=== PATIENT | male | born 1950 | race Caucasian/White ===

== ENCOUNTER → 2021-04-02 17:49 | Outpatient (CLI) | payer MEDICARE, OTHER, SELFPAY ==
[2021-04-02 19:03] LABS: Alanine Aminotransferase 24 U/L (12-78); Albumin Level 4.1 g/dl (3.5-5.0); Albumin/Globulin Ratio 1.6 (1.1-1.8); Alkaline Phosphatase 110 U/L (38-126); Anion Gap 12.9 mEq/L (5-15); Aspartate Amino Transferase 33 U/L (17-59); Bilirubin,Total 0.4 mg/dl (0.2-1.3); Blood Urea Nitrogen 12 mg/dl (9-20); Calcium 9.1 mg/dl (8.4-10.2); Carbon Dioxide 28 mmol/L (22.0-30.0); Chloride 104 mmol/L (98-107); Chol/HDL Ratio 2.6 (1-3.5); Cholesterol 136 mg/dl (140-200); Estimated Glomerular Filt Rate 96 ml/min (>60); GFR (African American) 116 ML/MIN (>60); Globulin 2.5 g/dL (1.3-3.2); Glucose 297 mg/dl (74-100); HDL Cholesterol 53 mg/dl (40-60); Potassium 4.9 mmoL/L (3.5-5.1); Sodium 140 mmol/L (136-145); Total Protein,Serum 6.6 g/dl (6.3-8.2); Triglycerides 126 mg/dl (30-150); VLDL Cholesterol 25 mg/dL (0-40)
== END ==
PROVIDERS: Visit Provider Internal Medicine Adolescent Medicine
DX: E78.5 Hyperlipidemia, unspecified (principal)
CPT/HCPCS: 80053; 80061

== ENCOUNTER → 2022-07-15 20:46 | Outpatient (CLI) | payer MEDICARE, OTHER, SELFPAY ==
[2022-07-15 18:53] LABS: Basophils # 0.1 K/mm3 (0-0.2); Basophils % 0.8 % (0.1-2.0); Eosinophils # 0.3 K/mm3 (0.0-0.4); Eosinophils % 4.1 % (0.1-12.0); Hematocrit 44.9 % (42.0-52.0); Hemoglobin 14.2 g/dL (14.1-18.0); Lymphocytes # 1.6 K/mm3 (0.7-4.5); Lymphocytes % 23.7 % (10-50); Mean Corpuscular HGB Conc 31.5 g/dL (31.8-35.4); Mean Corpuscular Hemoglobin 29.8 pg (27.0-31.2); Mean Corpuscular Volume 94.5 fl (80-94); Mean Platelet Volume 9.7 fl (7.4-10.4); Monocytes # 0.5 K/mm3 (0.1-1.0); Monocytes % 7.1 % (1.7-9.3); Neutrophils # 4.5 K/mm3 (1.8-7.8); Neutrophils % 64.3 % (37.0-80.0); Platelet Count 297 K/mm3 (142-424); Red Blood Count 4.75 M/mm3 (4.60-6.20); Red Cell Distribution Width 13.2 % (11.5-17.5)
== END ==
LOC: LAB 07-18 01:24 → LAB.DROPOF 07-23 08:21
PROVIDERS: PCP Family Medicine; Visit Provider Family Medicine
DX: I10 Essential (primary) hypertension (principal); Z00.00 Encounter for general adult medical examination without abnormal findings; Z12.5 Encounter for screening for malignant neoplasm of prostate
CPT/HCPCS: 85025; G0103

== ENCOUNTER → 2023-02-06 12:00 | Outpatient (CLI) | payer MEDICARE, OTHER, SELFPAY | PROVIDERS: PCP Family Medicine; Visit Provider Nurse Practitioner Family | DX: E11.9 Type 2 diabetes mellitus without complications (principal) ==

== ENCOUNTER 2023-10-24 18:27 | Day surgery (SDC) | payer MEDICARE, OTHER, SELFPAY ==
[2023-10-24] VITALS (7 sets, daily range): BP systolic 125–144; BP diastolic 63–82; PULSE 73–89; RESP 16–18; TEMP 36.3–36.9; O2SAT 97–99; BMI 28.7
--- NOTE | 2023-10-24 18:49 | XR_ITS ---
PROCEDURE INFORMATION: Exam: XR Chest Exam date and time: 10/24/2023 6:57 PM Age: 73 years old Clinical indication: Other: Chicken bone vs esophagus TECHNIQUE: Imaging protocol: Radiologic exam of the chest. Views: 1 view. COMPARISON: CR XR SOFT TISSUE NECK 10/24/2023 6:57 PM FINDINGS: Lungs: No evidence of acute pulmonary disease or infiltrates Pleural spaces: No large effusion or pneumothorax. Heart/Mediastinum: No evidence of mediastinal widening or cardiac silhouette enlargement; the mediastinum and heart appear within normal limits for contour and size. Vasculature: There are calcifications of the aortic arch. Bones/joints: No evidence of acute osseous abnormalities within the visualized portions of the thoracic spine and ribs. Osseous structures appear appropriate for patient age. IMPRESSION: 1. No dense parenchymal consolidation, pleural effusion, or pneumothorax. 2. No radiopaque foreign body is identified.
--- NOTE | 2023-10-24 18:49 | XR_ITS ---
PROCEDURE INFORMATION: Exam: XR Soft Tissue Neck Exam date and time: 10/24/2023 6:57 PM Age: 73 years old Clinical indication: Other: Chicken bone vs esophagus TECHNIQUE: Imaging protocol: Radiologic exam of the soft tissues of the neck. COMPARISON: CR XR CHEST PORTABLE 10/24/2023 6:57 PM FINDINGS: Airway: Normal. No abnormal narrowing. Soft tissues: No obvious abnormalities seen in the prevertebral and paravertebral soft tissues. No radiopaque foreign body is identified, prevertebral soft tissues are within normal limits. Bones/joints: No evidence of acute spondylolisthesis or vertebral subluxation. Vertebral body heights are generally preserved, but some endplate sclerosis and anterior osteophytes are noted at multiple levels. Narrowing of multiple intervertebral disc spaces observed, indicative of degenerative disc disease. Hypertrophic changes are seen in the facet joints, consistent with osteoarthritis. No fractures or bony lesions identified. No abnormalities seen in adjacent osseous structures. IMPRESSION: 1. Degenerative changes without acute abnormality detected. 2. No radiopaque foreign body is identified, prevertebral soft tissues are within normal limits.
--- NOTE | 2023-10-24 18:51 | ECG_ITS ---
APPROVED REPORT Exam: Resting ECG HR:82 bpm ECG Measurements Heart Rate 82 AXES HI 148 P 73 QRSd 93 QRS -15 QT 370 T 51 QTc 408 Conclusion SINUS RHYTHM SEPTAL MYOCARDIAL INFARCTION , PROBABLY OLD [40+ ms Q WAVE IN V1/V2] ABNORMAL ECG Electronically signed by : LULU SINGH, 10/25/2023 16:16:06
--- NOTE | 2023-10-24 18:52 | HMH.EDGENADL ---
Discharge Plan Disposition Patient Disposition: Home, Self-Care Chief Complaint: Skin/Abscess/Foreign Body Prescriptions Prescriptions: No Action (DME) pen needle, diabetic [BD Ultra-Fine Mini Pen Needle] 31 gauge x 3/16 needle See Rx Instructions .ROUTE .MEDSUPPLY Qty: 50 Rx Instructions: As directed (DME) insulin syringe-needle U-100 [BD Insulin Syringe Ultra-Fine] 1 mL 30 gauge x 1/2 syringe See Rx Instructions .ROUTE .MEDSUPPLY Qty: 10 Rx Instructions: As directed (DME) OneTouch Ultra Test Strip See Rx Instructions .ROUTE .MEDSUPPLY Qty: 10 Patient Comments: USE 1 STRIP TO CHECK GLUCOSE TWICE DAILY Rx Instructions: As directed insulin asp prt-insulin aspart [Novolog Mix 70-30FlexPen U-100] 100 unit/mL (70-30) insulin pen 36 unit SQ Rx Instructions: 36 units QAM 12 units HS metformin 500 mg tablet extended release 24 hr 1,000 mg PO BID 90 Days Qty: 360 0RF Rx Instructions: Take two tabs twice daily Jardiance 25 mg tablet See Rx Instructions .ROUTE .COMPLEX Qty: 30 2RF Dose Instruction: TAKE 1 TABLET 1 TIME EACH DAY Rx Instructions: TAKE 1 TABLET 1 TIME EACH DAY atorvastatin 40 mg tablet 40 mg PO HS 90 Days Qty: 90 1RF lisinopril 10 mg tablet 10 mg PO DAILY Qty: 90 1RF Referrals Follow up/Referrals: Koffi Guzman MD [Primary Care Provider] - See instructions Clinical Impressions Clinical Impression: Esophageal foreign body Instructions Patient Instructions: DI for Skin Abscess Discharge ED Provider: Richy Delarosa General Adult HPI General Chief complaint: Skin/Abscess/Foreign Body Stated complaint: FB in throat Time Seen by Provider: 10/24/23 18:30 Mode of Arrival: Ambulatory Source of Information: Patient and Spouse Limitations: No Limitations Description of Symptoms (Recalled from ER Triage Doc. by RN): pt got choked on a chicken bone while eating dinner this evening. able to pass liquids but the bone will not go down History of Present Illness HPI narrative: Patient is a 73-year-old male who is largely healthy who presents emergency department for evaluation of feeling a bone stuck in his throat. Patient was eating bone and chicken approximate hour and a half prior to arrival when he swallowed and feels it stuck in his throat near the level of the middle of his neck. He has associated odynophagia, is able to pass liquids, has been unable to vomit up the bone and due to persistent symptoms he presents here for continued evaluation. No chest pain, no abdominal pain. Related Data Home Medications Medication Instructions Recorded Confirmed blood sugar diagnostic (OneTouch #10 ea 03/12/22 07/14/23 Ultra Test strips) insulin syringe-needle U-100 1 mL #10 ea 03/12/22 07/14/23 30 gauge x 1/2 (BD Insulin Syringe Ultra-Fine) pen needle, diabetic 31 gauge x #50 ea 03/12/22 07/14/23 3/16 (BD Ultra-Fine Mini Pen Needle) insulin aspar prot-insulin aspart 36 unit SQ 07/14/23 07/14/23 100 unit/mL (70-30) subcutaneous pen (Novolog Mix 70-30FlexPen U-100) Previous Rx's Medication Instructions Recorded metformin 500 mg tablet,extended 1,000 mg (2 x 500 mg) PO BID 10/27/22 release 24 hr Diabetes 90 days #360 tabs empagliflozin 25 mg tablet See Rx Instructions .Route 02/17/23 (Jardiance) .COMPLEX #30 tabs atorvastatin 40 mg tablet 40 mg PO HS CHOELSTEROL 90 days 08/20/23 #90 tabs lisinopril 10 mg tablet 10 mg PO DAILY BP #90 tabs 08/30/23 Allergies Allergy/AdvReac Type Severity Reaction Status Date / Time No Known Allergies Allergy Verified 07/14/23 08:38 [facility] Disclaimer: The information contained in this section may have been updated after the patient was seen, as this information can be updated by other users. Medical History Diabetes mellitus Hyperlipidemia Surgical History Fracture of left leg History of colonoscopy History of dental surgery Family History Mother Cancer Grandmother Diabetes Social History Smoking Status: Never smoker alcohol intake: never current occupational status: employed Travel in the last 8 weeks: None household members: spouse housing: house current occupation: [employer] mechanical caffeine: Yes ROS Obtained: Yes Systems reviewed as appropriate & no additional complaints except as documented Physical Exam General General appearance: alert and in no apparent distress Head Head exam: atraumatic and normocephalic Eye Eye exam: Present PERRL ENT ENT exam: Present mucous membranes moist Neck Neck exam: Present normal inspection Chest Chest inspection: Present normal inspection and symmetric chest wall rise Respiratory Respiratory exam: Present normal lung sounds bilaterally; Absent respiratory distress Cardiovascular Cardiovascular exam: Present regular rate and normal rhythm Abdominal Exam Abdominal exam: Present soft; Absent tenderness Extremities Exam Extremities exam: Present normal inspection Neurological Exam Neurological exam: Present alert Psychiatric Psychiatric exam: Present normal affect Skin Skin exam: Present warm and dry Medical Decision Making Margarito Inquiry Pt receiving controlled substance: No Vital Signs: 10/24/23 18:28 Temperature 98.4 F Temperature Source Oral Pulse Rate [Right] 86 Respiratory Rate 18 Blood Pressure [Right Arm] 132/67 Blood Pressure Mean [Right Arm] 88 02 Sat by Pulse Oximetry 98 Oxygen Delivery Method Room Air Lab Data Lab Results 10/24/23 18:38: WBC 7.7, RBC 4.36 L, Hgb 13.2 L, Hct 41.2 L, MCV 94.5 H, MCH 30.2, MCHC 32.0, RDW 13.7, Plt Count 319, MPV 8.1, Neut % (Auto) 62.8, Lymph % (Auto) 25.0, [place] % (Auto) 6.4, Eos % (Auto) 4.9, Baso % (Auto) 0.9, Neut # (Auto) 4.8, Lymph # (Auto) 1.9, [place] # (Auto) 0.5, Eos # (Auto) 0.4, Baso # (Auto) 0.1, Sodium 138, Potassium 4.5, Chloride 104, Carbon Dioxide 29, Anion Gap 9.5, BUN 23 H, Creatinine 1.20, Estimated Creat Clear 64, Estimated GFR 60, Est GFR ( Amer) 72, Glucose 70 L, Calcium 9.0, Total Bilirubin 0.5, AST 38, ALT 29, Alkaline Phosphatase 93, Total Protein 6.9, Albumin 4.2, Globulin 2.7, Albumin/Globulin Ratio 1.6 10/24/23 18:38 10/24/23 18:38 Orders (Tests/Meds): ED MEDICATIONS Generic Name Dose Route Start Last Admin Trade Name Jessica PRN Reason Stop Dose Admin Sodium Chloride 10 ml 10/24/23 18:57 Sodium Chloride 0.9% 10ml Flush Syringe IV 11/23/23 18:56 NEEDED PRN Maintain IV Site ORDERS Category Date Time Status CXR --portable [XR chest portable] Stat Exams 10/24/23 18:49 Taken Neck soft tissue XR [XR soft tissue neck] Stat Exams 10/24/23 18:49 Taken CBC w/Auto Diff [Complete Blood Count Auto Diff] Stat Lab 10/24/23 18:38 Completed CMP [Comprehensive Metabolic Panel] Stat Lab 10/24/23 18:38 Completed EKG Request [ECG Request] Stat Y 10/24/23 18:51 Ordered ECG Data Tracing #1: Independently interpreted by me, rate is 82, rhythm is regular, no ST elevation in anatomical contiguous leads, QTc 408 Medical Decision Narrative: In summary patient is a 73-year-old male with past medical history described above who presents emergency department for evaluation of throat pain with foreign body. Patient is hemodynamically stable nontoxic-appearing arrival, afebrile. History is consistent with esophageal foreign body, plain film will be obtained and hematologic labs to be obtained however patient will likely require endoscopy. The case was discussed with general surgery on-call and patient will proceed to endoscopy for definitive evaluation at this time. Critical Care Critical Care Time Critical Care Time: No
[2023-10-24 18:59] LABS: Basophils # 0.1 K/mm3 (0-0.2); Basophils % 0.9 % (0.1-2.0); Eosinophils # 0.4 K/mm3 (0.0-0.4); Eosinophils % 4.9 % (0.1-12.0); Hematocrit 41.2 % (42.0-52.0); Hemoglobin 13.2 g/dL (14.1-18.0); Lymphocytes # 1.9 K/mm3 (0.7-4.5); Mean Corpuscular Hemoglobin 30.2 pg (27.0-31.2); Mean Corpuscular Volume 94.5 fl (80-94); Mean Platelet Volume 8.1 fl (7.4-10.4); Monocytes # 0.5 K/mm3 (0.1-1.0); Monocytes % 6.4 % (1.7-9.3); Neutrophils # 4.8 K/mm3 (1.8-7.8); Neutrophils % 62.8 % (37.0-80.0); Platelet Count 319 K/mm3 (142-424); Red Blood Count 4.36 M/mm3 (4.60-6.20); Red Cell Distribution Width 13.7 % (11.5-17.5); White Blood Count 7.7 K/mm3 (4.8-10.8)
[2023-10-24 19:00] LABS: Chloride 104 mmol/L (98-107); Sodium 138 mmol/L (136-145)
[2023-10-24 19:01] LABS: Potassium 4.5 mmoL/L (3.5-5.1)
[2023-10-24 19:03] LABS: Alanine Aminotransferase 29 U/L (12-78); Albumin Level 4.2 g/dl (3.5-5.0); Albumin/Globulin Ratio 1.6 (1.1-1.8); Alkaline Phosphatase 93 U/L (38-126); Anion Gap 9.5 mEq/L (5-15); Aspartate Amino Transferase 38 U/L (17-59); Bilirubin,Total 0.5 mg/dl (0.2-1.3); Blood Urea Nitrogen 23 mg/dl (9-20); Carbon Dioxide 29 mmol/L (22.0-30.0); Creatinine Clearance Estimated 64 mL/min (50-200); Estimated Glomerular Filt Rate 60 ml/min (>60); GFR (African American) 72 ML/MIN (>60); Globulin 2.7 g/dL (1.3-3.2); Glucose 70 mg/dl (74-100); Total Protein,Serum 6.9 g/dl (6.3-8.2)
--- NOTE | 2023-10-24 19:15 | PC.NURSE ---
paged dr lópez
--- NOTE | 2023-10-24 19:17 | PC.NURSE ---
talked to smokehouse operator to call surgery team in. ER who spoke with requested this
--- NOTE | 2023-10-24 19:31 | PC.NURSE ---
Started surgical packet for endoscopy. Patient made aware, undressed and placed in gown. Spouse at bedside at this time.
--- NOTE | 2023-10-24 19:49 | PC.NURSE ---
Report given to Leticia Lares and packed given to her and reviewed.
--- NOTE | 2023-10-24 19:54 | PC.NURSE ---
patient taken to surgery and registration notified
--- NOTE | 2023-10-24 20:16 | P.PCN_ITS ---
Procedure: Date: 10/24/23 Patient Date of :: 1950 Procedure Performed:: EGD Indications:: Esophagial foreign body and dysphagia Performing Provider:: Terry Moreno MD Referring Provider:: ER Sedation:: MAC Procedure:: Consent obtained and timeout performed. I began the procedure with a brief oropharyngeal exam which was normal. The posterior oropharynx showed edema and irritation at the posterior false vocal cords. The esophagus was normal. He had a small hiatal hernia without esophagitis. The stomach was normal with small amount of food, no large bone. The scope was removed and he tolerated the pr ocedure well. Findings:: Irritation at the level of the false vocal cords. Recommendations:: Salt water gargle and chloraseptic spray for the next few days. Complications:: none Estimated blood obtained (mL): 0 Colonoscopy Component Colonoscopy Component Was a colonoscopy performed during today's procedure?: No
--- NOTE | 2023-10-24 20:20 | EXP.ANES.CKL ---
[facility] Disclaimer: The information contained in this section may have been updated after the patient was seen, as this information can be updated by other users. Medical History Diabetes mellitus Hyperlipidemia Surgical History Fracture of left leg History of colonoscopy History of dental surgery Family History Mother Cancer Grandmother Diabetes Social History Smoking Status: Never smoker alcohol intake: never substance use type: denies use current occupational status: employed Travel in the last 8 weeks: None household members: spouse housing: house current occupation: [employer] mechanical caffeine: Yes [facility] Anesthesia Checklist Patient Identification Patient Identification: Verbal (Name & ) Structural Data Admitted From: Emergency Dept Planned Operative Procedure/s: egd Airway Assessment Mallampati Score:: Class II C-Spine Mobility Assessed: Yes TMJ Mobility Assessed: Yes Dentition: Poor Dentition Neurological Assessment Level of Consciousness: Awake, Alert and Appropriate Anesthesia Plan Anesthesia Risk discussed: Yes Anesthesia Plan: Verified ASA Class: II Anesthesia Type: MAC
== END 2023-10-24 20:42 | disposition home or self-care (01) ==
LOC: ER 19:35 → SDC 19:55
PROVIDERS: Emergency Provider Emergency Medicine; PCP Family Medicine; Visit Provider Student in an Organized Health Care Education/Training Program
PROC: (CPT 44950; principal; 2023-10-24 20:00)
DX: R09.A2 Foreign body sensation, throat (principal); R13.10 Dysphagia, unspecified; J38.3 Other diseases of vocal cords; K44.9 Diaphragmatic hernia without obstruction or gangrene
CPT/HCPCS: 43235; 70360; 71045; 80053; 85025; 93005

== ENCOUNTER 2024-01-12 11:37 | Outpatient (CLI) | payer MEDICARE, OTHER, SELFPAY ==
[2024-01-12 16:40] LABS: Basophils % 0.7 % (0.1-2.0); Eosinophils # 0.2 K/mm3 (0.0-0.4); Eosinophils % 4.4 % (0.1-12.0); Hematocrit 41.6 % (42.0-52.0); Hemoglobin 13.6 g/dL (14.1-18.0); Lymphocytes # 1.4 K/mm3 (0.7-4.5); Lymphocytes % 26.1 % (10-50); Mean Corpuscular HGB Conc 32.8 g/dL (31.8-35.4); Mean Corpuscular Hemoglobin 31.6 pg (27.0-31.2); Mean Corpuscular Volume 96.4 fl (80-94); Monocytes # 0.4 K/mm3 (0.1-1.0); Monocytes % 7.1 % (1.7-9.3); Neutrophils # 3.4 K/mm3 (1.8-7.8); Neutrophils % 61.7 % (37.0-80.0); Platelet Count 291 K/mm3 (142-424); Red Blood Count 4.32 M/mm3 (4.60-6.20); Red Cell Distribution Width 13.8 % (11.5-17.5); White Blood Count 5.5 K/mm3 (4.8-10.8)
[2024-01-12 16:53] LABS: Albumin Level 3.8 g/dl (3.5-5.0); Chloride 106 mmol/L (98-107); Potassium 5.1 mmoL/L (3.5-5.1); Sodium 138 mmol/L (136-145)
[2024-01-12 16:56] LABS: Alanine Aminotransferase 24 U/L (12-78); Albumin/Globulin Ratio 1.7 (1.1-1.8); Alkaline Phosphatase 86 U/L (38-126); Anion Gap 11.1 mEq/L (5-15); Aspartate Amino Transferase 26 U/L (17-59); Bilirubin,Total 0.6 mg/dl (0.2-1.3); Blood Urea Nitrogen 18 mg/dl (9-20); Carbon Dioxide 26 mmol/L (22.0-30.0); Cholesterol 120 mg/dl (140-200); Estimated Glomerular Filt Rate 83 ml/min (>60); GFR (African American) 101 ML/MIN (>60); Globulin 2.3 g/dL (1.3-3.2); Total Protein,Serum 6.1 g/dl (6.3-8.2); Triglycerides 99 mg/dl (30-150); VLDL Cholesterol 20 mg/dL (0-40)
[2024-01-12 16:57] LABS: Calcium 8.4 mg/dl (8.4-10.2); Chol/HDL Ratio 2.7 (1-3.5); Glucose 144 mg/dl (74-100); HDL Cholesterol 45 mg/dl (40-60)
[2024-01-12 17:07] LABS: Direct LDL Cholesterol 51.76 mg/dL (100-129)
[2024-01-12 17:26] LABS: Thyroid Stimulating Hormone 1.79 uIU/mL (0.465-4.68)
[2024-01-12 18:49] LABS: Creatinine,Urine Random 94 mg/dL (Not Estab.); Microalbumin/Creatinine Ratio 19.4
== END 2024-01-12 23:59 | disposition home or self-care (01) ==
LOC: LAB.DROPOF 01-13 11:37
PROVIDERS: PCP Nurse Practitioner Family; Visit Provider Nurse Practitioner Family
DX: E78.5 Hyperlipidemia, unspecified (principal); E11.9 Type 2 diabetes mellitus without complications; Z79.4 Long term (current) use of insulin; Z79.84 Long term (current) use of oral hypoglycemic drugs; Z12.5 Encounter for screening for malignant neoplasm of prostate
CPT/HCPCS: 80053; 80061; 82043; 82570; 83036; 84443; 85025; G0103

== ENCOUNTER 2024-03-22 07:09 | Emergency (ER) | payer MEDICARE, OTHER, SELFPAY ==
[2024-03-22 07:11] VITALS: BP 122/87; PULSE 105; RESP 20; TEMP 36.8; O2SAT 99; BMI 26.6
--- NOTE | 2024-03-22 07:27 | PC.NURSE ---
dr fair at bedside
--- NOTE | 2024-03-22 07:35 | CT_ITS ---
FINAL REPORT CLINICAL HISTORY: tree to chest; pain L lateral ribs FINDINGS: CT CHEST WITHOUT CONTRAST TECHNIQUE: Axial images through the chest were performed by computed tomography without contrast. This study was performed with techniques to keep radiation doses as low as reasonably achievable, (ALARA). Individualized dose reduction techniques using automated exposure control or adjustment of mA and/or kV according to the patient's size were employed. FINDINGS: There is no axillary adenopathy. There is a subcarinal lymph node measuring 2 cm. No other significant mediastinal adenopathy is seen. The heart size is normal. There is no pericardial or pleural effusion. There is scarring or atelectasis at the lung bases. There is no pneumothorax. No suspicious infiltrate or nodule identified. No acute osseous abnormality is seen. IMPRESSION: No acute process. Scarring or atelectasis at the lung bases. Indeterminate 2 cm subcarinal lymph node. Reviewed, Interpreted and Dictated by Tomas Tovar MD Transcribed by Yelitza Salgado Authenticated and [facility]
--- NOTE | 2024-03-22 07:48 | ED_ITS ---
Discharge Plan Disposition Patient Disposition: Home, Self-Care Prescriptions Prescriptions: No Action (DME) pen needle, diabetic [BD Ultra-Fine Mini Pen Needle] 31 gauge x 3/16 needle See Rx Instructions .ROUTE .MEDSUPPLY Qty: 50 Rx Instructions: As directed (DME) insulin syringe-needle U-100 [BD Insulin Syringe Ultra-Fine] 1 mL 30 gauge x 1/2 syringe See Rx Instructions .ROUTE .MEDSUPPLY Qty: 10 Rx Instructions: As directed (DME) OneTouch Ultra Test Strip See Rx Instructions .ROUTE .MEDSUPPLY Qty: 10 Patient Comments: USE 1 STRIP TO CHECK GLUCOSE TWICE DAILY Rx Instructions: As directed Januvia 50 mg tablet 50 mg PO DAILY Patient Comments: TAKE 1 TABLET 1 TIME EACH DAY insulin lispro protamin-lispro [Humalog Mix 75-25 KwikPen] 100 unit/mL (75-25) insulin pen SQ Patient Comments: INJECT 36 UNITS UNDER THE SKIN BEFORE BREAKFAST AND 12 UNITS UNDER THE SKIN BEFORE SUPPER. TITRATE DIRECTED. DO NOT EXCEED 60 UITS PER DAY. metformin 500 mg tablet extended release 24 hr 1,000 mg PO BID 90 Days Qty: 360 0RF Rx Instructions: Take two tabs twice daily Jardiance 25 mg tablet See Rx Instructions .ROUTE .COMPLEX Qty: 30 2RF Dose Instruction: TAKE 1 TABLET 1 TIME EACH DAY Rx Instructions: TAKE 1 TABLET 1 TIME EACH DAY atorvastatin 40 mg tablet 40 mg PO HS 90 Days Qty: 90 1RF lisinopril 10 mg tablet See Rx Instructions .ROUTE .COMPLEX Qty: 90 1RF Dose Instruction: TAKE 1 TABLET 1 TIME EACH DAY FOR BLOOD PRESSURE Rx Instructions: TAKE 1 TABLET 1 TIME EACH DAY FOR BLOOD PRESSURE Referrals Follow up/Referrals: Koffi Guzman MD [Primary Care Provider] - See instructions Activity Restrictions/Add. Instructions Additional Instructions/Restrictions: Per my informal read on your CAT scan I did not see any displaced rib fractures significant lung injuries scapular fracture or other emergent conditions. As discussed you are offered to stay and wait for the radiology read but we will call you back if there is any significant abnormalities noted on the radiologist read of your CT scan. You may take 800 mg of ibuprofen [id number] 3 times a day in addition to 1000 mg of Tylenol 3 times a day as needed for pain. If you take the ibuprofen please make sure you take it with food. Return to the ER with any significant worsening of symptoms. Clinical Impressions Clinical Impression: Contusion of left chest wall Print Language Print Language: [place] Island[place] Discharge ED Provider: Obdulia Barba General Adult HPI General Chief complaint: PAIN Stated complaint: shoulder and back pain 03/19 Time Seen by Provider: 03/22/24 07:25 Mode of Arrival: Family Vehicle Source of Information: Patient and Medical Record Limitations: No Limitations Description of Symptoms (Recalled from ER Triage Doc. by RN): Pt presents to ER after a 12 log fell onto his left mid-back rib area on Sat (03/19). He denies any SOA, dyspnea, or difficulty breathing. He does state that he has a sharp pain to the left upper rib/back area and left chest wall. There is bruising, abrasions, and redness to the area of impact to left upper back. No crepitus noted. There area is very tender to palpation. Denies any injury to any other part of his body. History of Present Illness HPI narrative: Patient is a 74-year-old male presents today with left lateral rib cage pain after an injury that he sustained while cutting trees a few days ago. States its located around his left scapular area and left rib he denies any injuries elsewhere. A tree struck him in this region. No head injuries no neck pain no midline thoracic back pain no abdominal pain or anterior chest wall pain. States that he is not on any anticoagulants or antiplatelets. Came in today because with any deep breath or sneezing states it hurts significantly. Related Data Home Medications ?Medication ?Instructions ?Recorded ?Confirmed blood sugar diagnostic (OneTouch #10 ea 03/12/22 01/12/24 Ultra Test strips) insulin syringe-needle U-100 1 mL #10 ea 03/12/22 01/12/24 30 gauge x 1/2 (BD Insulin Syringe Ultra-Fine) pen needle, diabetic 31 gauge x #50 ea 03/12/22 01/12/24 3/16 (BD Ultra-Fine Mini Pen Needle) insulin lispro protamine-lispro SQ 01/12/24 01/12/24 100 unit/mL (75-25) subcutaneous pen (Humalog Mix 75-25 KwikPen) sitagliptin phosphate 50 mg tablet 50 mg PO DAILY 01/12/24 01/12/24 (Januvia) Previous Rx's ?Medication ?Instructions ?Recorded metformin 500 mg tablet,extended 1,000 mg (2 x 500 mg) PO BID 10/27/22 release 24 hr Diabetes 90 days #360 tabs empagliflozin 25 mg tablet See Rx Instructions .Route 02/17/23 (Jardiance) .COMPLEX #30 tabs atorvastatin 40 mg tablet 40 mg PO HS CHOELSTEROL 90 days 08/20/23 #90 tabs lisinopril 10 mg tablet See Rx Instructions .Route 03/07/24 .COMPLEX #90 tabs Allergies Allergy/AdvReac Type Severity Reaction Status Date / Time No Known Allergies Allergy Verified 01/12/24 08:41 [facility] Disclaimer: The information contained in this section may have been updated after the patient was seen, as this information can be updated by other users. Medical History Hyperlipidemia Diabetes mellitus Surgical History Fracture of left leg History of dental surgery History of colonoscopy Family History Mother Cancer Grandmother Diabetes Social History Smoking Status: Never smoker alcohol intake: never substance use type: denies use current occupational status: employed Travel in the last 8 weeks: None household members: spouse housing: house current occupation: [employer] mechanical caffeine: Yes Other Medical History Have you received the Flu Vaccine for this season: No Have you received the Pneumonia Vaccine: Yes ROS Obtained: Yes All systems reviewed & no additional complaints except as documented Physical Exam General General appearance: alert and in no apparent distress Head Head exam: atraumatic and normocephalic Neck Neck exam: Absent tenderness Chest Chest inspection: Present tenderness (Left lateral chest wall tenderness) Respiratory Respiratory exam: Present normal lung sounds bilaterally and respiratory distress Cardiovascular Cardiovascular exam: Present regular rate and normal rhythm Abdominal Exam Abdominal exam: Present soft; Absent distention or tenderness Back Exam Back exam: Absent tenderness (No midline thoracic tenderness or lumbar tenderness) Neurological Exam Neurological exam: Present alert and oriented X3 Medical Decision Making Medical Records Screening: Per USPSTF and CDC recommendations, given the prevalence of disease in our region, it is our hospital?s policy to screen for HIV and viral Hepatitis for all patients aged 18 and over and those with ongoing risk factors. Margarito Inquiry Pt receiving controlled substance: No Vital Signs: 03/22/24 07:11 Temperature 98.2 F Temperature Source Oral Pulse Rate [Right] 105 H Respiratory Rate 20 Blood Pressure [Right Arm] 122/87 Blood Pressure Mean [Right Arm] 98 Blood Pressure Source [Right Arm] Automatic Cuff 02 Sat by Pulse Oximetry 99 Orders (Tests/Meds): ED MEDICATIONS Generic Name Dose Route Start Last Admin Trade Name Jessica PRN Reason Stop Dose Admin Acetaminophen 1,000 mg 03/22/24 08:02 Acetaminophen 500mg Tab PO 03/22/24 08:03 ONCE ONE Ibuprofen 800 mg 03/22/24 08:02 Ibuprofen 400 Mg Tablet PO 03/22/24 08:03 ONCE ONE ORDERS Category Date Time Status CT chest wo con Stat Cat Scan 03/22/24 07:35 Taken HIV (1&2) Antibody Rapid Stat Lab 03/22/24 07:33 Ordered Hep C Ab with Reflex to RNA Stat Lab 03/22/24 07:33 Ordered Medical Decision Narrative: 74-year-old with above history and physical he is [place] CT head negative N exus negative he has no anterior chest wall pain midline thoracic or lumbar spine pain no anterior abdominal pain or other long bone pain he does have significant pain and tenderness over the left lateral chest wall itself. This makes me concerned for multiple rib fractures versus pneumothorax or hemothorax or pulmonary contusion will get a noncontrasted CT scan for further evaluation and reassess. Patient denies the need for any pain medicine at the moment. CT scan performed which I personally interpreted I do not see any evidence of hemothorax pneumothorax pulmonary contusion rib fractures spine fractures or scapular fractures. Formal radiology read is pending I discussed these findings with the patient and offered for him to stay and wait for radiology read but he opted to want to go home asked if I could keep an eye on his CT read and call him if there is any significant abnormalities. I told him that was reasonable. He has been given a dose of Tylenol and ibuprofen advised what to take at home and return precautions emphasized patient was discharged in stable condition. Critical Care Critical Care Time Critical Care Time: No
[2024-03-22] MEDS: IBUPROFEN 400 MG TABLET 800 MG PO (08:08)
[2024-03-22] MEDS: ACETAMINOPHEN 500MG TAB 1000 MG PO (08:09)
[2024-03-22 08:14] VITALS: BP 120/85; PULSE 98; RESP 19; TEMP 36.8; O2SAT 98
== END 2024-03-22 08:16 | disposition home or self-care (01) ==
PROVIDERS: Emergency Provider Student in an Organized Health Care Education/Training Program; PCP Family Medicine
DX: S20.219A Contusion of unspecified front wall of thorax, initial encounter (principal); W19.XXXA Unspecified fall, initial encounter
CPT/HCPCS: 71250; 99284

== ENCOUNTER 2024-07-05 07:54 | Day surgery (SDC) | payer MEDICARE, OTHER, SELFPAY ==
[2024-07-05 09:03] VITALS: BMI 27.3
[2024-07-05 09:04] VITALS: BP 127/80; PULSE 80; RESP 18; TEMP 36.1; O2SAT 97
[2024-07-05 09:06] LABS: POC Glucose,Bedside 80 (70-110)
[2024-07-05] MEDS: TROPICAMIDE 1% OPTH SOLN 2ML OP (09:11)
[2024-07-05] MEDS: APRACLONIDINE 0.5% OPHTH SOLN 5ML OP (09:11)
[2024-07-05] MEDS: PHENYLEPHRINE 2.5% OPHTH SOLN 2ML OP (09:11)
[2024-07-05] MEDS: TETRACAINE 0.5% OPTH SOL 15ML OP (09:11)
--- NOTE | 2024-07-05 11:46 | HMH.PROCNOTE ---
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 The patient has noticed that the vision has decreased from the previous good level postop. The patient reports that he/she is having trouble reading and/or driving or that glare is giving them a problem. On exam, the patient was found to have visually significant posterior capsular opacification. The treatment options, risks and benefits were explained and the patient elected to have YAG laser capsulotomy in an attempt to improve the vision. Of note, the best corrected visual acuity is in the 23/30 or worse range by refraction or glare testing. The eye was dilated and 1 drop of 0.5% Iopidine applied. YAG laser energy was applied to the posterior capsular bag with good formation of an opening and no complications were noted. The patient will be seen back for follow up in 2 weeks. OD 72 pulses, 256mj. OS 20 pulses, 86mj
== END 2024-07-05 09:50 | disposition home or self-care (01) ==
LOC: OUTP 07:56
PROVIDERS: PCP Family Medicine; Visit Provider Ophthalmology
PROC: (CPT 66821; principal; 2024-07-05 07:30)
DX: H26.493 Other secondary cataract, bilateral (principal); E11.9 Type 2 diabetes mellitus without complications; Z79.84 Long term (current) use of oral hypoglycemic drugs
CPT/HCPCS: 66821; 82962